=== PATIENT | female | born 1930 | race Caucasian/White ===

== ENCOUNTER 2016-11-09 15:52 | Emergency (ER) | payer MEDICARE, BC ==
--- NOTE | 2016-11-09 16:37 | UC ---
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 Onset/Duration: Sudden Onset - Allergies/Home Medications Allergies/Adverse Reactions: Allergies Allergy/AdvReac Type Severity Reaction Status Date / Time seasonal Allergy Sneezing Uncoded 11/09/16 16:17 PMH/Surg Hx/FS Hx/Imm Hx Previously Healthy: Yes - Surgical History Surgical History: Yes Surgery Procedure, Year, and Place: hysterectomy, bladder sling, bilateral cataract 2 years ago - Family History Known Family History: Positive: None Negative: Cardiac Disease, Hypertension, Diabetes - Social History Occupation: Retired Lives: With Family Alcohol Use: None Substance Use Type: None Smoking Status (MU): Never Smoked Tobacco Review of Systems Constitutional: Negative Skin: Negative Eyes: Eye Redness ENT: Negative Respiratory: Negative Cardiovascular: Negative Gastrointestinal: Negative Genitourinary: Negative Motor: Negative Neurovascular: Negative Musculoskeletal: Negative Neurological: Negative Psychological: Negative All Other Systems Reviewed And Are Negative: Yes Physical Exam Triage Information Reviewed: Yes Appearance: Well-Appearing, No Pain Distress, Thin Vital Signs: Initial Vital Signs Temp 99.2 F 11/09/16 16:04 Pulse 75 11/09/16 16:04 Resp 18 11/09/16 16:04 BP 126/60 11/09/16 16:04 Pulse Ox 100 11/09/16 16:04 Vital Signs Reviewed: Yes Eyes: Positive: Conjunctiva Inflamed, Other: - Right conjunctiva bright red blood fundoscopic exam- blood vessela appear normal vision normal for partient see Nurse's note ENT: Positive: Pharynx normal, TMs normal Neck: Positive: Supple Respiratory: Positive: Lungs clear, Normal breath sounds, No respiratory distress Cardiovascular: Positive: RRR, No Murmur, Pulses Normal Abdomen Description: Positive: Nontender, Soft Bowel Sounds: Positive: Present Musculoskeletal: Positive: No Edema Neurological: Positive: Alert Psychological Exam: Normal Skin Exam: Normal Eye Complaint Course/Dx - Course Course Of Treatment: exam completed. subconjunctival hemmprrhage will check CBC for platelets not on any blood thinnners. followup with Dr Westbrook. discussed if eye becomes painful or any vision changes to proceed to the emergency room for further evalution - Differential Dx/Diagnosis Differential Diagnosis/HQI/PQRI: Foreign Body, Other Provider Diagnoses: subconjuntival hemmorhage- right eye - Physician Notification/Consults Discussed Patient Care With: Dr Preston Time Discussed With Above Provider: 17:03 Discharge - Discharge Plan Condition: Stable Disposition: HOME Patient Education Materials: Subconjunctival Hemorrhage (ED) Referrals: Melia Bowling NP [Primary Care Provider] - Clifton Escudero MD [Medical Doctor] - Glenda Westbrook MD [Medical Doctor] - Additional Instructions: You have a broken blood vessel in your right eye Please call Dr Westbrook in the morning for further evaluation and treatment of your eye If you have an increase in pain, vision changes or headacheplease seek care in the emergency department tonight
[2016-11-09 17:07] VITALS: BP 126/60
[2016-11-09 20:31] LABS: Hematocrit 34 % (35-47); Hemoglobin 11.1 g/dl (12.0-16.0); Mean Corpuscular HGB Conc 33 g/dl (31-36); Mean Corpuscular Hemoglobin 33 pg (27-31); Mean Corpuscular Volume 100 fL (80-97); Mean Platelet Volume 9 um3 (7.4-10.4); Red Blood Count 3.35 10^6/ul (4.0-5.4); Red Cell Distribution Width 19 % (10.5-15); White Blood Count 5.6 10^3/ul (3.5-10.8)
== END 2016-11-09 17:20 | disposition home or self-care (01) ==
LOC: UCCORT 15:52
DX: H11.31 Conjunctival hemorrhage, right eye (principal)
CPT/HCPCS: 36415; 85025; 99212; G0463

== ENCOUNTER 2017-05-22 14:11 | Emergency (ER) | payer MEDICARE, BC ==
[2017-05-22 14:41] VITALS: BP 97/56
--- NOTE | 2017-05-22 15:36 | RAD ---
Indication: Laceration to the left upper arm after a fall Comparison: None. Technique: Two views of the left humerus were obtained. Report: The visualized bones of the left upper arm are well-corticated and properly aligned. There is no acute fracture or dislocation seen. There is no focal bony abnormality. IMPRESSION: Normal radiograph of the left humerus. If the patient's symptoms persist, follow-up imaging is recommended
--- NOTE | 2017-05-22 17:00 | UC ---
Skin Complaint HPI - HPI Summary HPI Summary: Pt is accompanied by 2 female family members. pt reports that she was walking through kitchen last night and tripped on rug in kitchen, tripped and fell and hit left upper arm/humerus on edge of table. Denies, LOC of hitting head. Reports full ROM in left upper extremity. C/o multiple "skin tears" to left upper arm/humerus. 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 ?: No Onset/Duration: Sudden Onset, Still Present Skin Exposure Onset/Duration: Hours Ago Timing: Constant Onset Severity: Mild Current Severity: Mild Pain Intensity: 0 Pain Scale Used: 0-10 Numeric Location: Discrete - left upper arm/humerus Character: Painful Aggravating: Touch Alleviating: Unknown Associated Signs & Symptoms: Positive: Tenderness Related History: Trauma - fall from standing - Allergy/Home Medications Allergies/Adverse Reactions: Allergies Allergy/AdvReac Type Severity Reaction Status Date / Time seasonal Allergy Sneezing Uncoded 05/22/17 14:41 Review of Systems Constitutional: Negative Skin: Other - multiple skin tears left upper arm/humerus Eyes: Negative ENT: Negative Respiratory: Negative Cardiovascular: Negative Gastrointestinal: Negative Genitourinary: Negative Motor: Negative Neurovascular: Negative Musculoskeletal: Myalgia Neurological: Negative Psychological: Negative All Other Systems Reviewed And Are Negative: Yes PMH/Surg Hx/FS Hx/Imm Hx Previously Healthy: Yes - Surgical History Surgical History: Yes Surgery Procedure, Year, and Place: hysterectomy, bladder sling - Family History Known Family History: Negative: Cardiac Disease, Hypertension, Diabetes - Social History Occupation: Retired Lives: With Family Alcohol Use: None Substance Use Type: None Smoking Status (MU): Never Smoked Tobacco Have You Smoked in the Last Year: No - Immunization History Most Recent Tetanus Shot: 07/2016 Physical Exam Triage Information Reviewed: Yes Appearance: Well-Appearing Vital Signs: Initial Vital Signs Temp 99.5 F 05/22/17 14:27 Pulse 18 05/22/17 14:27 Resp 24 05/22/17 14:27 BP 97/56 05/22/17 14:27 Pulse Ox 97 05/22/17 14:27 Vital Signs Reviewed: Yes Eye Exam: Normal ENT Exam: Normal Neck exam: Normal Respiratory Exam: Normal Cardiovascular Exam: Normal Abdominal Exam: Normal Musculoskeletal Exam: Normal Musculoskeletal: Positive: ROM Intact Neurological Exam: Normal Psychological Exam: Normal Skin Exam: Other - multiple skin tears- 4-5 in various sizes, non bleeding, wound was cleansed wih normal saline and and skin edges approximated to edge. Pt tolerated wound cleanse without c/o. I applied vaseline gauze to cover all the wounds and applied gauze pads and wrapped kerlix over top. Pt tolerated procedure well. Course/Dx - Differential Diagnoses - Skin Complaint Differential Diagnoses: Other - skin tears - Diagnoses Provider Diagnoses: skin tears.left upper arm Discharge - Discharge Plan Condition: Stable Disposition: HOME Prescriptions: Cephalexin CAP* [Keflex 500 CAP*] 500 mg PO Q12H #14 cap Patient Education Materials: Skin Tear (ED) Referrals: Melia Bowling NP [Primary Care Provider] - 2 Days (Please follow up with your pCP for evaluation of wound healing. )
== END 2017-05-22 16:05 | disposition home or self-care (01) ==
LOC: UCCORT 14:11
DX: S41.112A Laceration without foreign body of left upper arm, initial encounter (principal); W01.198A Fall on same level from slipping, tripping and stumbling with subsequent striking against other object, initial encounter; Y93.9 Activity, unspecified; Y92.000 Kitchen of unspecified non-institutional (private) residence as the place of occurrence of the external cause
CPT/HCPCS: 99212; G0463